=== PATIENT | female | born 1980 | race Caucasian/White ===

== ENCOUNTER → 2017-04-27 | Outpatient (REF) | payer BC, SELFPAY | LOC: M LAB REF 19:29 | PROVIDERS: ATTEND Physician Assistant | DX: J02.9 Acute pharyngitis, unspecified (principal) ==

== ENCOUNTER → 2019-12-26 | Outpatient (REF) | payer BC | LOC: M LAB REF 11:16 | PROVIDERS: ATTEND Physician Assistant | DX: N30.01 Acute cystitis with hematuria (principal) ==

== ENCOUNTER → 2021-10-27 | Outpatient (REF) | payer BC | LOC: M SFHCWAGY 12:51 | PROVIDERS: ATTEND Obstetrics & Gynecology | DX: Z34.83 Encounter for supervision of other normal pregnancy, third trimester (principal) ==

== ENCOUNTER → 2022-05-25 | Outpatient (REF) | payer BC ==
[~2022-05-25] MED LIST: PRENTAB9 PO
== END ==
LOC: M PLALAB 12:51
PROVIDERS: ATTEND Nurse Practitioner Family
DX: R87.610 Atypical squamous cells of undetermined significance on cytologic smear of cervix (ASC-US) (principal); Z12.4 Encounter for screening for malignant neoplasm of cervix
CPT/HCPCS: 87624; G0123

== ENCOUNTER → 2023-05-06 | Outpatient (REF) | payer BC | LOC: M LAB REF 08:26 | PROVIDERS: ATTEND Nurse Practitioner Adult Health | DX: R19.7 Diarrhea, unspecified (principal) ==

== ENCOUNTER → 2023-07-06 | Outpatient (CLI) | payer BC, OTHER | LOC: M WHC 09:05 | PROVIDERS: ATTEND Nurse Practitioner Adult Health | DX: Z12.31 Encounter for screening mammogram for malignant neoplasm of breast (principal); R92.323 Mammographic fibroglandular density, bilateral breasts; R92.8 Other abnormal and inconclusive findings on diagnostic imaging of breast ==

== ENCOUNTER → 2023-07-18 | Outpatient (CLI) | payer BC, OTHER | LOC: M WHC 14:18 | PROVIDERS: ATTEND Nurse Practitioner Adult Health | DX: R92.2 Inconclusive mammogram (principal); N63.11 Unspecified lump in the right breast, upper outer quadrant | CPT/HCPCS: 76642; 77065; G0279 ==

== ENCOUNTER → 2024-02-07 | Outpatient (CLI) | payer BC | LOC: M WHC 07:05 | PROVIDERS: ATTEND Nurse Practitioner Adult Health | DX: D24.1 Benign neoplasm of right breast (principal) ==

== ENCOUNTER → 2025-04-16 | Outpatient (CLI) | payer BC | LOC: M WHC 13:23 | PROVIDERS: ATTEND Family Medicine | DX: N60.01 Solitary cyst of right breast (principal); N60.02 Solitary cyst of left breast | CPT/HCPCS: 76642; 77066; G0279 ==